=== PATIENT | male | born 1990 | race Caucasian/White ===

== ENCOUNTER 2018-04-10 03:33 | Emergency (ER) | payer MEDICAID, OTHER ==
[~2018-04-10] VITALS: Ht 175.3 cm; Wt 145.1 kg
[2018-04-10 03:38] VITALS: BP_SYST 146
== END 2018-04-10 04:23 ==
LOC: SED 03:33
DX: Z02.83 Encounter for blood-alcohol and blood-drug test (principal)
CPT/HCPCS: 93005; 99283